=== PATIENT | female | born 1965 | race Two or more races ===

== ENCOUNTER 2017-02-15 23:50 | Emergency (ER) | payer MEDICAID ==
[~2017-02-15] VITALS: Ht 162.6 cm; Wt 158.8 kg
[2017-02-16] MEDS ORDERED: HALOPERIDOL LACTATE 5 MG/1 ML VIAL IM ONE (00:15)
[2017-02-16] MEDS ORDERED: LORAZEPAM 2 MG/1 ML VIAL IM ONE (00:15)
[2017-02-16] MEDS ORDERED: HALOPERIDOL LACTATE 5 MG/1 ML VIAL ONE (00:26)
[2017-02-16] MEDS ORDERED: LORAZEPAM 2 MG/1 ML VIAL ONE (00:27)
[2017-02-16 02:03] LABS: BASOPHILS % (AUTO) 0.5 % (0.0-2.0); EOSINOPHILS # (AUTO) 0.1 K/uL (0.0-0.7); EOSINOPHILS % (AUTO) 1.3 % (0.0-7.0); HEMATOCRIT 31.5 % (31.2-41.9); HEMOGLOBIN 10.2 g/dL (10.9-14.3); LYMPHOCYTES # (AUTO) 1.6 K/uL (20.0-40.0); LYMPHOCYTES % (AUTO) 19.4 % (20.5-51.5); MEAN CORPUSCULAR HEMOGLOBIN 23.2 uug (24.7-32.8); MEAN CORPUSCULAR HGB CONC 32 g/dL (32.3-35.6); MEAN CORPUSCULAR VOLUME 71.7 fL (75.5-95.3); MONOCYTES # (AUTO) 0.5 K/uL (2.0-10.0); MONOCYTES % (AUTO) 6.2 % (0.0-11.0); NEUTROPHILS # (AUTO) 5.8 K/uL (1.8-8.9); NEUTROPHILS % (AUTO) 72.6 % (38.5-71.5); PLATELET COUNT (AUTO) 306 K/uL (179-408)
[2017-02-16] MEDS ORDERED: DIPH50CA38 PO (02:08)
[2017-02-16] MEDS ORDERED: ZIPR60CA2 PO (02:08)
[2017-02-16] MEDS ORDERED: PARO30TA4 PO (02:08)
[2017-02-16 02:15] LABS: CARBON DIOXIDE 28 mmol/L (21-32); CHLORIDE 104 mmol/L (98-107); CREATININE 0.9 mg/dL (0.6-1.3); GLUCOSE 119 mg/dL (74-106); POTASSIUM 3.3 mmol/L (3.5-5.1); UREA NITROGEN, BLOOD 11 mg/dL (7-18)
[2017-02-16 02:21] LABS: ALANINE AMINOTRANSFERASE 36 U/L (14-59); ALKALINE PHOSPHATASE 71 U/L (50-136); ASPARTATE AMINOTRANSFERASE 19 U/L (15-37); BILIRUBIN,DIRECT 0.1 mg/dL (0.0-0.2); BILIRUBIN,TOTAL 0.3 mg/dL (0.2-1.0); TOTAL PROTEIN, SERUM 7.4 g/dL (6.4-8.2)
[2017-02-16 02:25] LABS: ACETAMINOPHEN < 2.0 ug/mL (10-30)
[2017-02-16 02:29] LABS: ETHANOL < 3 MG/DL (0-0)
[2017-02-16 03:43] LABS: *AMPHETAMINE, URINE NEGATIVE (NEGATIVE); *BARBITURATE, URINE NEGATIVE (NEGATIVE); *CANNABINOID, URINE NEGATIVE (NEGATIVE); *COCCAINE, URINE NEGATIVE (NEGATIVE); *OPIATE, URINE NEGATIVE (NEGATIVE); *PHENCYCLIDINE SCREEN,URINE NEGATIVE (NEGATIVE)
[2017-02-16 04:27] LABS: *BILIRUBIN,URIN NEGATIVE (NEGATIVE); *BLOOD, URINE NEGATIVE (NEGATIVE); *CLARITY,URINE SLIGHTLY CLOUDY (CLEAR); *COLOR,URINE YELLOW (YELLOW); *KETONES,URINE NEGATIVE (NEGATIVE); *PROTEIN,URINE NEGATIVE (NEGATIVE); *UROBILINOGEN,URINE 0.2 E.U./dl (NORMAL); LEUKOCYTE ESTERASE ,URINE NEGATIVE (NEGATIVE); NITRITE, URINE NEGATIVE (NEGATIVE); PH,URINE 5.5 (5.0-8.0); UGLUCOSE NEGATIVE (NEGATIVE)
[2017-02-16 04:57] LABS: BACTERIA,URINE FEW /HPF (NONE SEEN); MUCUS,URINE MANY /LPF (0-FEW); RBC,URINE 0-3 /HPF (0-3); SQUAMOUS EPITHELIAL CELL,UR MODERATE /HPF (NONE SEEN)
--- NOTE | 2017-02-16 05:39 | NUR ---
Patient discharged to home in stable conditon. Written and verbal after care instructions given. Patient verbalizes understanding of instructions.
--- NOTE | 2017-02-16 06:12 | NUR ---
Despite conversation with CARLENE, Rigoberto Stallings, and the family's agreement with discharge plan the family upon exiting the ER called 911 and the police responded. Family states that patient is "acting different" and the police are going to write a police hold. Patient returned to room 3A, GAUDENCIO notified, Rigoberto Stallings notified.
[2017-02-16] MEDS ORDERED: CARVEDILOL 12.5 MG TABLET (06:55)
[2017-02-16] MEDS ORDERED: OLANZAPINE 5 MG TABLET PO ONE (07:00)
== END 2017-02-16 05:40 | disposition home or self-care (01) ==
LOC: ER 23:51
DX: F20.9 Schizophrenia, unspecified (principal)
CPT/HCPCS: 36415; 71045; 80307; 85025; 93005; A4663; G0480; G0480-TC; J1630; J2060

== ENCOUNTER 2017-02-16 06:37 | Emergency (ER) | payer MEDICAID ==
[~2017-02-16] VITALS: Ht 162.6 cm; Wt 158.8 kg
[~2017-02-16 06:37] MED LIST: DIPH50CA38 PO; PARO30TA4 PO; ZIPR60CA2 PO
[2017-02-16] MEDS ORDERED: CARVEDILOL 12.5 MG TABLET (06:55)
--- NOTE | 2017-02-16 06:57 | NUR ---
SON STATES PT TAKES BP MED ONLY IF SHE FEELS BAD.NON COMPLIANT WITH ALL MEDS
--- NOTE | 2017-02-16 07:00 | NUR ---
recieved pt in bed, lapd and family members at bedside. pt no sign of distress.
[2017-02-16] MEDS ORDERED: OLANZAPINE 5 MG TABLET PO ONE (07:15)
[2017-02-16] MEDS ORDERED: OLANZAPINE 5 MG TABLET ONE (07:43)
--- NOTE | 2017-02-16 07:51 | NUR ---
dr. zenaida ham talking to art over the phone.
--- NOTE | 2017-02-16 08:30 | NUR ---
lapd left the pt. pt sons at bedside. per winding department supervisor, no one to one sitter available at this point. called security to come and watch the pt.
--- NOTE | 2017-02-16 09:00 | NUR ---
hospital tray at bedside. pt son will assisst the pt.
--- NOTE | 2017-02-16 10:04 | NUR ---
CEE CALLED BACK AND SAID MIGHT HAVE A ROOM AT [facility], WILL COME AND FOLLOW UP
--- NOTE | 2017-02-16 10:56 | NUR ---
PT SONS AT BEDSIDE TALKING TO PURCHASING MANAGER.
--- NOTE | 2017-02-16 11:31 | NUR ---
WINNIE AT BEDSIDE.
--- NOTE | 2017-02-16 12:49 | NUR ---
BETTY FROM [facility] CALLED BACK AND TRANSFERED TO [facility] PER REQUEST
--- NOTE | 2017-02-16 13:01 | NUR ---
CALLED [facility] TO TRANSFER THE PT PER WINNIE ORDER.
--- NOTE | 2017-02-16 13:55 | NUR ---
[facility] BEDSIDE TO TRANSFER THE PT. PT COOPERATIVE AND SMILING AT THIS TIME. PERINEAL HYGIENE PROVIDED PRIOR TO TRANSFER. PT WITH NO SIGN OF DISTRESS. BOTH PT SON AT BED SIDE.
--- NOTE | 2017-02-16 14:15 | NUR ---
GAVE REPORT TO LATISHA AT THE [facility].
== END 2017-02-16 14:22 | disposition short-term general hospital (02) ==
LOC: ER 06:51
DX: F23 Brief psychotic disorder (principal)
CPT/HCPCS: A4663